=== PATIENT | male | born 1965 | race African-American/Black ===

== ENCOUNTER 2022-05-08 17:38 | Inpatient (IN) | payer OTHER ==
[2022-05-08 18:28] VITALS: BMI 64.0
[2022-05-08 20:50] LABS: BASO % 1.2 % (0-2.0); EOS % 1.8 % (0-4.5); HEMATOCRIT 38.7 % (35.4-49); HEMOGLOBIN 12.6 GM/dL (11.7-16.9); LYMPH % 13.6 % (8-40); MCH 31.3 pg (25.7-33.7); MCHC 32.6 g/dl (32.0-35.9); MEAN CELL VOLUME 96.2 fl (80-96); MEAN PLT VOLUME 7.5 fl (7.5-11.1); MONO % 8.4 % (3.8-10.2); PLATELET COUNT 203 10^3/uL (134-434); RBC 4.03 M/mm3 (4.00-5.60); RDW 15.8 % (11.9-15.9); WHITE BLOOD COUNT 5.9 K/mm3 (4.0-10.0)
[2022-05-08 21:06] LABS: INR 1.49 (0.83-1.09); PROTHROMBIN TIME (PATIENT) 17.2 SEC (9.7-13.0)
[2022-05-08 21:08] LABS: ACTIVATED PTT 36.2 SECONDS (25.2-36.5)
[2022-05-08 21:18] LABS: CHLORIDE 98 mmol/L (98-107); SODIUM 137 mmol/L (136-145)
[2022-05-08 21:19] LABS: CALCIUM 9.1 mg/dL (8.5-10.1)
[2022-05-08 21:20] LABS: ALBUMIN 3.7 g/dl (3.4-5.0); BLOOD UREA NITROGEN 41.8 mg/dL (7-18); CO2 24 mmol/L (21-32); GLUCOSE,RANDOM 77 mg/dL (74-106)
[2022-05-08 21:23] LABS: SGOT/AST 43 U/L (15-37); SGPT/ALT 15 U/L (13-61)
[2022-05-08 21:25] LABS: BILIRUBIN,TOTAL 0.7 mg/dL (0.2-1); TOT PROT 7.2 g/dl (6.4-8.2)
[2022-05-08 21:26] LABS: ALK PHOS 106 U/L (45-117)
[2022-05-08 21:46] LABS: ANION GAP 15 MMOL/L (8-16); CREATININE 8.6 mg/dL (0.55-1.3)
[2022-05-08] MEDS ORDERED: ALBUTEROL SO4 0.042% IH SOL 1.25 MG/3 ML VIAL.NEB NEB ONE (21:48)
[2022-05-08] MEDS ORDERED: CALCIUM GLUCONATE 10% - 1,000 MG/10 ML VIAL IVPB ONE (21:48)
[2022-05-08] MEDS ORDERED: INSULIN REGULAR HUMAN 100 UNITS/ML *VIAL IVPUSH ONE (21:49)
[2022-05-08] MEDS ORDERED: DEXTROSE 50%-WATER - 25 GM/50 ML VIAL IVPUSH ONE ×2 (21:49→22:38)
[2022-05-08] MEDS ORDERED: ALBUTEROL SO4 0.083% IH SOL 2.5 MG/3 ML VIAL.NEB. NEB ONE (22:05)
[2022-05-08] MEDS ORDERED: CALCIUM GLUC IN NACL, ISO-OSM 1 GM/50 ML BAG IVPB ONE (22:05)
[2022-05-08] MEDS ORDERED: DEXTROSE 50%-WATER 25 GM/50 ML DISP.SYRIN ONE ×2 (22:05→22:39)
[2022-05-09 02:38] LABS: ARTERIAL BLD GAS O2 SATURATION 95.3 % (95-98); ARTERIAL BLOOD GAS BASE EXCESS 0.2 mmol/L (-2-2); ARTERIAL BLOOD GAS PO2 80.9 mmHg (80-100); ARTERIAL BLOOD GAS pH 7.349 (7.350-7.450)
[2022-05-09] MEDS ORDERED: traMADol HCL 50 MG TABLET PO PRN (08:08)
[2022-05-09] MEDS: CARVEDILOL 12.5 MG TABLET (FP) PO SCH ×2 (09:32→23:16)
[2022-05-09] MEDS: APIXABAN 2.5 MG TABLET PO SCH ×2 (09:32→23:13)
[2022-05-09] MEDS ORDERED: APIXABAN 2.5 MG TABLET ONE (09:36)
[2022-05-09] MEDS ORDERED: NAPH,MB-DB/K PH,MBDB POWDER PACKET ONE (09:36)
[2022-05-09] MEDS ORDERED: CARVEDILOL 12.5 MG TABLET (FP) ONE (09:36)
[2022-05-09] MEDS ORDERED: traMADol HCL 50 MG TABLET ONE (09:39)
[2022-05-09] MEDS ORDERED: DOXAZOSIN MESYLATE 1 MG TABLET PO SCH (10:00)
[2022-05-09] MEDS ORDERED: FLUoxetine HCL 10 MG TABLET PO SCH (10:00)
[2022-05-09 10:35] LABS: BASO % 1.1 % (0-2.0); EOS % 3.2 % (0-4.5); HEMATOCRIT 37.2 % (35.4-49); HEMOGLOBIN 11.9 GM/dL (11.7-16.9); LYMPH % 13.3 % (8-40); MCH 30.6 pg (25.7-33.7); MCHC 32.1 g/dl (32.0-35.9); MEAN CELL VOLUME 95.5 fl (80-96); MEAN PLT VOLUME 8.2 fl (7.5-11.1); MONO % 7.4 % (3.8-10.2); PLATELET COUNT 216 10^3/uL (134-434); RDW 15.8 % (11.9-15.9); WHITE BLOOD COUNT 5.3 K/mm3 (4.0-10.0)
[2022-05-09 10:53] LABS: CHLORIDE 99 mmol/L (98-107); SODIUM 139 mmol/L (136-145)
[2022-05-09 10:55] LABS: ANION GAP 12 MMOL/L (8-16); BLOOD UREA NITROGEN 48.6 mg/dL (7-18); CALCIUM 8.8 mg/dL (8.5-10.1); CO2 28 mmol/L (21-32); GLUCOSE,RANDOM 89 mg/dL (74-106); MAGNESIUM 2.4 mg/dL (1.8-2.4)
[2022-05-09 10:59] LABS: PHOSPHOROUS 7.2 mg/dL (2.5-4.9)
[2022-05-09 11:04] LABS: CREATININE 9.7 mg/dL (0.55-1.3)
[2022-05-09] MEDS: CALCIUM ACETATE 667 MG CAPSULE (FP) PO SCH ×2 (11:26→18:30)
[2022-05-09] MEDS: GABAPENTIN 400 MG CAPSULE PO SCH ×2 (13:41→23:16)
[2022-05-09] MEDS ORDERED: GABAPENTIN 400 MG CAPSULE ONE (13:42)
[2022-05-09] MEDS ORDERED: SODIUM CHLORIDE 250 ML IV PRN (19:56)
[2022-05-09] MEDS ORDERED: MELATONIN 1 MG TABLET PO SCH (22:00)
[2022-05-09] MEDS ORDERED: CLOPIDOGREL BISULFATE 75 MG TABLET (FP) PO SCH (22:00)
[2022-05-09] MEDS ORDERED: ATORVASTATIN CA 80 MG TABLET (FP) PO SCH (22:00)
[2022-05-09] MEDS ORDERED: traZODone HCL 50 MG TABLET (FP) PO SCH (22:00)
[2022-05-09] MEDS ORDERED: FAMOTIDINE 20 MG TABLET PO SCH (22:00)
[2022-05-09] MEDS ORDERED: AMITRIPTYLINE HCL 25 MG TABLET PO SCH (22:00)
[2022-05-10] MEDS ORDERED: traMADol HCL 50 MG TABLET PO PRN (05:13)
[2022-05-10] MEDS ORDERED: GABAPENTIN 400 MG CAPSULE PO SCH ×2 (06:00→09:51)
[2022-05-10] MEDS ORDERED: FLUoxetine HCL 10 MG TABLET PO SCH (10:00)
[2022-05-10] MEDS ORDERED: DOXAZOSIN MESYLATE 1 MG TABLET PO SCH (10:00)
[2022-05-10] MEDS ORDERED: CLOPIDOGREL BISULFATE 75 MG TABLET (FP) PO SCH (10:00)
[2022-05-10] MEDS: APIXABAN 2.5 MG TABLET PO SCH ×2 (12:58→21:13)
[2022-05-10] MEDS: CALCIUM ACETATE 667 MG CAPSULE (FP) PO SCH ×3 (12:58→17:35)
[2022-05-10] MEDS: CARVEDILOL 12.5 MG TABLET (FP) PO SCH ×2 (13:02→21:12)
[2022-05-10 19:12] VITALS: BP 112/56; PULSE 79; RESP 20; TEMP 98
[2022-05-10] MEDS ORDERED: AMITRIPTYLINE HCL 25 MG TABLET PO SCH (22:00)
[2022-05-10] MEDS ORDERED: traZODone HCL 50 MG TABLET (FP) PO SCH (22:00)
[2022-05-10] MEDS ORDERED: MELATONIN 1 MG TABLET PO SCH (22:00)
[2022-05-10] MEDS ORDERED: ATORVASTATIN CA 80 MG TABLET (FP) PO SCH (22:00)
[2022-05-10] MEDS ORDERED: FAMOTIDINE 10 MG TABLET PO SCH (22:00)
== END 2022-05-10 21:48 | DRG 637 ==
LOC: JER 17:38 → JERBED 05-09 00:22 → J5S 05-09 17:46
PROVIDERS: ADMIT Internal Medicine; ATTEND Internal Medicine
PROC: 5A1D70Z Performance of Urinary Filtration, Intermittent, Less than 6 Hours Per Day (ICD-10-PCS; principal; 2022-05-10)
DX: E11.649 Type 2 diabetes mellitus with hypoglycemia without coma (principal); G93.41 Metabolic encephalopathy; I12.0 Hypertensive chronic kidney disease with stage 5 chronic kidney disease or end stage renal disease; R44.3 Hallucinations, unspecified; R41.82 Altered mental status, unspecified; N18.6 End stage renal disease; I48.91 Unspecified atrial fibrillation; F32.A Depression, unspecified; I73.9 Peripheral vascular disease, unspecified; E78.5 Hyperlipidemia, unspecified; D50.9 Iron deficiency anemia, unspecified; E87.5 Hyperkalemia; E11.22 Type 2 diabetes mellitus with diabetic chronic kidney disease; Z99.2 Dependence on renal dialysis; Z89.612 Acquired absence of left leg above knee
CPT/HCPCS: 0241U-QW; 36415; 36600; 70450-TC; 74176-TC; 80048; 80053; 82803; 82962; 83036; 83735; 84100; 84132; 84484; 85025; 85610; 85730; 86803; 87340; 93005; 93010; 99285-25

== ENCOUNTER 2022-07-28 12:11 | Observation (INO) | payer OTHER ==
[2022-07-28] MEDS ORDERED: SODIUM CHLORIDE 0.9% 500 ML INFUS.BAG IV ONE (12:43)
[2022-07-28] MEDS ORDERED: ACETAMINOPHEN 1000 MG/100 ML BAG IVPB ONE (12:47)
[2022-07-28] MEDS ORDERED: ACETAMINOPHEN INJECTION 100 ML IVPB ONE (14:29)
[2022-07-28 15:20] LABS: HEMATOCRIT 32.6 % (35.4-49); HEMOGLOBIN 10.5 GM/dL (11.7-16.9); MCH 30.8 pg (25.7-33.7); MCHC 32.2 g/dl (32.0-35.9); MEAN CELL VOLUME 95.8 fl (80-96); MEAN PLT VOLUME 9.7 fl (7.5-11.1); PLATELET COUNT 144 10^3/uL (134-434); RDW 17.5 % (11.9-15.9)
[2022-07-28 15:22] LABS: VENOUS BASE EXCESS 1.1 mmol/L (-2-2); VENOUS O2 SATURATION 71.8 % (70-80); VENOUS PCO2 47.1 mmHg (38-52); VENOUS PH 7.376 (7.310-7.410)
[2022-07-28 15:28] LABS: INR 1.66 (0.83-1.09); PROTHROMBIN TIME (PATIENT) 19.2 SEC (9.7-13.0)
[2022-07-28 15:31] LABS: ACTIVATED PTT 29.6 SECONDS (25.2-36.5)
[2022-07-28 15:44] LABS: CALCIUM 8.4 mg/dL (8.5-10.1)
[2022-07-28 15:45] LABS: ALBUMIN 3.2 g/dl (3.4-5.0); BLOOD UREA NITROGEN 47.3 mg/dL (7-18)
[2022-07-28 15:48] LABS: BILIRUBIN,TOTAL 0.6 mg/dL (0.2-1); CREATININE 7.2 mg/dL (0.55-1.3)
[2022-07-28 15:50] LABS: TOT PROT 6.5 g/dl (6.4-8.2)
[2022-07-28 15:53] LABS: N-TERMINAL BNP 12681.8 pg/ml (5-125)
[2022-07-28 16:01] LABS: ANISOCYTOSIS 0; HELMET CELLS 0; HOWELL-JOLLY BODIES 0; MACROCYTOSIS 0; OVALOCYTE 0; ROULEAU 0; SICKELED CELLS 0; TARGET CELLS 0; TEAR DROP CELLS 0; TOXIC GRANULATION 0
[2022-07-28] MEDS ORDERED: VANCOMYCIN 1 GM in D5W (PRE-DOCKED) 1,000 MG/250 ML IVPB ONE (16:09)
[2022-07-28] MEDS ORDERED: PIPERACILLIN/TAZOB 2.25 GM 2.25 GM in DEXTROSE 5%-WATER - 50 ML IVPB ONE (16:09)
[2022-07-28] MEDS ORDERED: VANCOMYCIN/WATER FOR INJ (PEG) 1,000 MG/200 ML BAG IVPB ONE (16:23)
[2022-07-28] MEDS ORDERED: PIPERACILLIN/TAZOB 2.25 GM 2.25 GM/50 ML BAG IVPB ONE (16:23)
[2022-07-28] MEDS ORDERED: traMADol HCL 50 MG TABLET PO PRN (17:03)
[2022-07-28] MEDS ORDERED: ACETAMINOPHEN 325 MG TABLET (FP) PO PRN (17:04)
[2022-07-28] MEDS ORDERED: CALCIUM ACETATE 667 MG CAPSULE (FP) PO SCH (17:30)
[2022-07-28] MEDS ORDERED: IBUPROFEN 200 MG TABLET PO PRN (19:22)
[2022-07-28] MEDS ORDERED: AMITRIPTYLINE HCL 25 MG TABLET PO SCH (22:00)
[2022-07-28] MEDS ORDERED: traZODone HCL 50 MG TABLET (FP) PO SCH (22:00)
[2022-07-28] MEDS ORDERED: APIXABAN 2.5 MG TABLET PO SCH (22:00)
[2022-07-28] MEDS ORDERED: CARVEDILOL 12.5 MG TABLET (FP) PO SCH (22:00)
[2022-07-28] MEDS ORDERED: ATORVASTATIN CA 80 MG TABLET (FP) PO SCH (22:00)
[2022-07-28] MEDS ORDERED: GABAPENTIN 300 MG CAPSULE PO SCH (22:00)
[2022-07-28] MEDS ORDERED: ATORVASTATIN CA 80 MG TABLET (FP) ONE (22:19)
[2022-07-28 22:35] LABS: CHLORIDE 105 mmol/L (98-107); SODIUM 140 mmol/L (136-145)
[2022-07-28 22:37] LABS: CALCIUM 8.1 mg/dL (8.5-10.1)
[2022-07-28 22:38] LABS: ANION GAP 10 MMOL/L (8-16); BLOOD UREA NITROGEN 52.8 mg/dL (7-18); CO2 25 mmol/L (21-32); GLUCOSE,RANDOM 143 mg/dL (74-106)
[2022-07-28 22:41] LABS: BILIRUBIN,DIRECT 0.3 mg/dL (0.0-0.2)
[2022-07-28 22:53] LABS: CREATININE 7.8 mg/dL (0.55-1.3)
[2022-07-28] MEDS ORDERED: SODIUM CHLORIDE 500 ML IV STA ×2 (23:00→23:59)
[2022-07-29] MEDS ORDERED: PIPERACILLIN/TAZOB 2.25 GM 2.25 GM in DEXTROSE 5%-WATER - 50 ML IVPB SCH ×2 (02:00→10:00)
[2022-07-29] MEDS ORDERED: PIPERACILLIN/TAZOB 2.25 GM 2.25 GM/50 ML BAG IVPB ONE (03:53)
[2022-07-29] MEDS ORDERED: IBUPROFEN 200 MG TABLET PO PRN (05:53)
[2022-07-29] MEDS ORDERED: traMADol HCL 50 MG TABLET PO PRN (05:53)
[2022-07-29] MEDS ORDERED: VANCOMYCIN 250 MG/5 ML ORAL SOLUTION PO SCH ×2 (06:00)
[2022-07-29 06:26] VITALS: BMI 37.8
[2022-07-29 07:42] LABS: HEMATOCRIT 32.5 % (35.4-49); HEMOGLOBIN 10.4 GM/dL (11.7-16.9); MCH 30.5 pg (25.7-33.7); MCHC 31.9 g/dl (32.0-35.9); MEAN CELL VOLUME 95.6 fl (80-96); MEAN PLT VOLUME 9.4 fl (7.5-11.1); PLATELET COUNT 122 10^3/uL (134-434); RDW 17.2 % (11.9-15.9); WHITE BLOOD COUNT 7.7 K/mm3 (4.0-10.0)
[2022-07-29 08:00] LABS: CHLORIDE 105 mmol/L (98-107); SODIUM 140 mmol/L (136-145)
[2022-07-29 08:03] LABS: BLOOD UREA NITROGEN 56.3 mg/dL (7-18); CO2 25 mmol/L (21-32); GLUCOSE,RANDOM 159 mg/dL (74-106)
[2022-07-29 08:06] LABS: BILIRUBIN,DIRECT 0.3 mg/dL (0.0-0.2); SGOT/AST 219 U/L (15-37); SGPT/ALT 461 U/L (13-61)
[2022-07-29 08:08] LABS: TOT PROT 5.9 g/dl (6.4-8.2)
[2022-07-29 08:09] LABS: BILIRUBIN,TOTAL 0.6 mg/dL (0.2-1)
[2022-07-29 08:13] LABS: ALK PHOS 174 U/L (45-117); ANION GAP 10 MMOL/L (8-16); CREATININE 8.2 mg/dL (0.55-1.3)
[2022-07-29 08:27] LABS: ANISOCYTOSIS 0; HELMET CELLS 0; HOWELL-JOLLY BODIES 0; MACROCYTOSIS 0; OVALOCYTE 0; ROULEAU 0; SICKELED CELLS 0; TARGET CELLS 0; TEAR DROP CELLS 0; TOXIC GRANULATION 0
[2022-07-29] MEDS: CARVEDILOL 6.25 MG TABLET (FP) PO SCH ×2 (09:41→21:59)
[2022-07-29] MEDS: PANTOPRAZOLE 40 MG TABLET PO SCH (09:41)
[2022-07-29] MEDS: CALCIUM ACETATE 667 MG CAPSULE (FP) PO SCH ×3 (09:41→17:34)
[2022-07-29] MEDS: GABAPENTIN 300 MG CAPSULE PO SCH (09:41)
[2022-07-29] MEDS ORDERED: GABAPENTIN 300 MG CAPSULE PO SCH (10:00)
[2022-07-29] MEDS ORDERED: PANTOPRAZOLE 40 MG TABLET PO SCH (10:00)
[2022-07-29] MEDS ORDERED: CLOPIDOGREL BISULFATE 75 MG TABLET (FP) PO SCH (10:00)
[2022-07-29] MEDS ORDERED: CARVEDILOL 6.25 MG TABLET (FP) PO SCH (10:00)
[2022-07-29] MEDS ORDERED: ALPRAZolam 2 MG TABLET PO ONE (10:34)
[2022-07-29] MEDS: PIPERACILLIN/TAZOB 2.25 GM 2.25 GM in DEXTROSE 5%-WATER - 50 ML IVPB SCH ×2 (11:27→17:34)
[2022-07-29] MEDS ORDERED: SODIUM CHLORIDE 250 ML IV PRN (11:28)
[2022-07-29] MEDS: traZODone HCL 50 MG TABLET (FP) PO SCH (22:55)
[2022-07-29] MEDS: ATORVASTATIN CA 80 MG TABLET (FP) PO SCH (22:55)
[2022-07-29] MEDS: AMITRIPTYLINE HCL 25 MG TABLET PO SCH (23:00)
[2022-07-30] MEDS: PIPERACILLIN/TAZOB 2.25 GM 2.25 GM in DEXTROSE 5%-WATER - 50 ML IVPB SCH ×3 (01:58→17:51)
[2022-07-30] MEDS ORDERED: DEXTROSE 50%-WATER 25 GM/50 ML DISP.SYRIN IVPUSH ONE (05:04)
[2022-07-30] MEDS: CALCIUM ACETATE 667 MG CAPSULE (FP) PO SCH ×3 (08:16→17:51)
[2022-07-30 08:51] LABS: HEMATOCRIT 29.1 % (35.4-49); HEMOGLOBIN 9.4 GM/dL (11.7-16.9); MCH 30.7 pg (25.7-33.7); MCHC 32.3 g/dl (32.0-35.9); MEAN PLT VOLUME 8.8 fl (7.5-11.1); PLATELET COUNT 115 10^3/uL (134-434); RBC 3.07 M/mm3 (4.00-5.60)
[2022-07-30 09:15] LABS: CHLORIDE 108 mmol/L (98-107); SODIUM 141 mmol/L (136-145)
[2022-07-30 09:22] LABS: ANION GAP 11 MMOL/L (8-16); CALCIUM 7.9 mg/dL (8.5-10.1); CO2 23 mmol/L (21-32)
[2022-07-30 09:23] LABS: ALBUMIN 2.5 g/dl (3.4-5.0); GLUCOSE,RANDOM 103 mg/dL (74-106)
[2022-07-30 09:25] LABS: SGPT/ALT 278 U/L (13-61)
[2022-07-30 09:26] LABS: BILIRUBIN,DIRECT 0.2 mg/dL (0.0-0.2); SGOT/AST 68 U/L (15-37)
[2022-07-30 09:27] LABS: BILIRUBIN,TOTAL 0.5 mg/dL (0.2-1); TOT PROT 5.2 g/dl (6.4-8.2)
[2022-07-30 09:30] LABS: ALK PHOS 120 U/L (45-117); CREATININE 9.9 mg/dL (0.55-1.3)
[2022-07-30] MEDS ORDERED: GABAPENTIN 100 MG CAPSULE PO SCH ×2 (10:00)
[2022-07-30] MEDS: CARVEDILOL 6.25 MG TABLET (FP) PO SCH ×2 (10:56→21:32)
[2022-07-30] MEDS: GABAPENTIN 300 MG CAPSULE PO SCH (10:57)
[2022-07-30] MEDS: PANTOPRAZOLE 40 MG TABLET PO SCH (10:57)
[2022-07-30] MEDS ORDERED: METOPROLOL TARTRATE 5 MG/5 ML VIAL IVPUSH PRN (11:01)
[2022-07-30] MEDS: ATORVASTATIN CA 80 MG TABLET (FP) PO SCH (21:32)
[2022-07-30] MEDS: traZODone HCL 50 MG TABLET (FP) PO SCH (21:32)
[2022-07-30 22:39] VITALS: RESP 15; TEMP 97.6
[2022-07-30] MEDS: AMITRIPTYLINE HCL 25 MG TABLET PO SCH (23:42)
[2022-07-31 00:05] VITALS: BP 115/53; PULSE 73
== END 2022-07-31 | disposition short-term general hospital (02) ==
LOC: JER 12:11 → JERBED 16:10 → UNDOADMOB 16:10 → INTOOBSV 16:10 → JERBED 17:09 → J2W 07-29 05:47 → JERBED 07-29 05:47
PROVIDERS: ADMIT Internal Medicine; ATTEND Internal Medicine
PROC: 3E033NZ Introduction of Analgesics, Hypnotics, Sedatives into Peripheral Vein, Percutaneous Approach (ICD-10-PCS; principal; 2022-07-28)
PROC: 3E033GC Introduction of Other Therapeutic Substance into Peripheral Vein, Percutaneous Approach (ICD-10-PCS; 2022-07-28)
PROC: 3E03329 Introduction of Other Anti-infective into Peripheral Vein, Percutaneous Approach (ICD-10-PCS; 2022-07-28)
PROC: 3E0337Z Introduction of Electrolytic and Water Balance Substance into Peripheral Vein, Percutaneous Approach (ICD-10-PCS; 2022-07-28)
DX: N18.6 End stage renal disease (principal); I73.9 Peripheral vascular disease, unspecified; I51.0 Cardiac septal defect, acquired; I48.91 Unspecified atrial fibrillation; I10 Essential (primary) hypertension; Z99.2 Dependence on renal dialysis; R50.9 Fever, unspecified; R06.02 Shortness of breath; R77.8 Other specified abnormalities of plasma proteins; W18.39XA Other fall on same level, initial encounter; Y93.89 Activity, other specified; Y92.89 Other specified places as the place of occurrence of the external cause; F32.A Depression, unspecified; E66.8 Other obesity; Z68.38 Body mass index [BMI] 38.0-38.9, adult; R94.5 Abnormal results of liver function studies; I25.10 Atherosclerotic heart disease of native coronary artery without angina pectoris; E78.5 Hyperlipidemia, unspecified; Z89.512 Acquired absence of left leg below knee; Z89.611 Acquired absence of right leg above knee
CPT/HCPCS: 0241U-QW; 36415; 70450-TC; 71045-TC-FY; 72125-TC; 74176-TC; 76705-TC; 80048; 80053; 80076; 82140; 82550; 82803; 82962; 83605; 83690; 83880; 84484; 85025; 85027; 85610; 85730; 86708; 86803; 86850; 86900; 86901; 87040; 87209; 87324; 87340; 87449; 87517; 93005; 93010; 93306-TC; 96361; 96365; 96366; 96375; 99285-25; G0378